=== PATIENT | female | born 1960 | race Caucasian/White ===

== ENCOUNTER 2025-04-14 14:34 | Outpatient (CLI) | payer MEDICARE, OTHER ==
--- NOTE | 2025-04-14 18:48 | RADIOLOGY REPORT ---
INDICATION: PAIN, FX LEFT KNEE PAIN COMPARISON: None TECHNIQUE: CT of the left lower extremity was performed without contrast. Volume transverse images we re obtained and reconstructed in multiple planes using bone and soft tissue algorithms. Radiation Dose Information: CT Dose: CTDI volume is 16.8 mGy. Dose-length product is 542 mGy*cm FINDINGS: Nondisplaced acute traumatic fracture of the lateral tibial plateau Chondrocalcinosis is seen in the medial and lateral knee compartments. Moderate degenerative arthrosis in the medial and lateral compartments. The soft tissues are normal. IMPRESSION: 1. Nondisplaced acute traumatic fracture of the lateral tibial plateau 2. Chondrocalcinosis is seen in the medial and lateral knee compartments. 3. Moderate degenerative arthrosis in the medial and lateral compartments. All CT scans at this medical facility are performed using dose modulation techniques as appropriate t o a performed exam including the following: Automated exposure control was utilized; adjustment of th e MA and/or KV according to patient size; and use of iterative reconstruction technique.
== END 2025-04-14 23:59 | disposition home or self-care (01) ==
LOC: RAD 14:34
PROVIDERS: ATTEND Physician Assistant Surgical
DX: S82.142A Displaced bicondylar fracture of left tibia, initial encounter for closed fracture (principal); M25.562 Pain in left knee; M17.12 Unilateral primary osteoarthritis, left knee; X58.XXXA Exposure to other specified factors, initial encounter; Y93.9 Activity, unspecified; Y92.89 Other specified places as the place of occurrence of the external cause; Y99.8 Other external cause status; Y93.89 Activity, other specified; M11.262 Other chondrocalcinosis, left knee
CPT/HCPCS: 73700